=== PATIENT | female | born 1970 | race Caucasian/White ===

== ENCOUNTER 2016-10-24 20:34 | Emergency (ER) | payer OTHER ==
[~2016-10-24] VITALS: Ht 160 cm; Wt 65.9 kg
[~2016-10-24 20:34] MED LIST: ARIP1TAB46 PO; BUPR-197 PO
[2016-10-24 21:08] VITALS: BP 143/65; PULSE 76; RESP 18; TEMP 97.7; O2SAT 97
[2016-10-24] MEDS ORDERED: BUPR100T4 PO (21:14)
[2016-10-24] MEDS ORDERED: MULTIVITAMIN (21:14)
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
[2016-10-24 22:03] LABS: AMPHETAMINE, URINE NEG (NEG); BARBITURATES, URINE NEG (NEG); COCAINE, URINE NEG (NEG)
[2016-10-24 22:10] LABS: AUTOMATED NEUTROPHIL # 4.1 TH/MM3 (1.8-7.7); BASOPHIL # 0.1 TH/MM3 (0-0.2); EOSINOPHIL # 0.1 TH/MM3 (0-0.4); EOSINOPHIL % 1.9 % (0.0-4.0); HEMATOCRIT 45.9 % (35.0-46.0); HEMO FLAGS DIFF FINAL; LYMPH % 26.8 % (9.0-44.0); LYMPHOCYTE # 1.7 TH/MM3 (1.0-4.8); MEAN CELL VOLUME 91.1 FL (80.0-100.0); MEAN CORPUSCULAR HGB CONC 34.1 % (32.0-36.0); MONO % 7.3 % (0.0-8.0); PLATELET COUNT 251 TH/MM3 (150-450); RED BLOOD COUNT 5.04 MIL/MM3 (4.00-5.30); RED CELL DISTRIBUTION WIDTH 12.5 % (11.6-17.2); WHITE BLOOD COUNT 6.4 TH/MM3 (4.0-11.0)
[2016-10-24 22:21] LABS: ALT (GPT) 141 U/L (10-53); ANION GAP 6 MEQ/L (5-15); AST (GOT) 87 U/L (15-37); BICARBONATE 28.1 MEQ/L (21.0-32.0); BLOOD UREA NITROGEN 14 MG/DL (7-18); CHLORIDE 105 MEQ/L (98-107); GLOMERULAR FILTRATION RATE 79 ML/MIN (>89); SODIUM (NA) 139 MEQ/L (136-145)
[2016-10-24 22:23] LABS: ALKALINE PHOSPHATASE 67 U/L (45-117); TOTAL BILIRUBIN ADULT 0.3 MG/DL (0.2-1.0)
[2016-10-25] MEDS ORDERED: MULTTAB67 PO (15:56)
== END 2016-10-24 23:18 | disposition home or self-care (01) ==
LOC: NEDAMB 20:34 → NEPA 23:18
DX: Z04.6 Encounter for general psychiatric examination, requested by authority (principal); F17.210 Nicotine dependence, cigarettes, uncomplicated; S40.022A Contusion of left upper arm, initial encounter; S40.021A Contusion of right upper arm, initial encounter; F31.9 Bipolar disorder, unspecified; Z91.14 Patient's other noncompliance with medication regimen
CPT/HCPCS: 80053; 80307; 80320; 85025; 99283

== ENCOUNTER 2016-11-30 13:29 | Inpatient (IN) | payer OTHER ==
[~2016-11-30] VITALS: Ht 160 cm; Wt 70.1 kg
[~2016-11-30 13:29] MED LIST changes: -ARIP1TAB46 PO; -BUPR-197 PO; +BUPR100T4 PO; +MULTTAB67 PO
[2016-11-30 14:06] VITALS: BP 127/64; PULSE 74; RESP 16; TEMP 99; O2SAT 96
--- NOTE | 2016-11-30 14:31 | PD ---
HPI Chief Complaint: Psychiatric Symptoms Time Seen by Provider: 14:27 Travel History International Travel<30 days: No Contact w/Intl Traveler<30days: No Traveled to known affect area: No History of Present Illness HPI 46-year-old female that presents to the ED for evaluation of psychiatric illness. Patient is an expert today secondary to noncompliance. Patient has a history of schizoaffective disorder, bipolar, depression. Patient apparently has been noncompliant with her medications and has been acting bizarre. Per expert that patient was apparently making nonsensical statements and night about her kids who were girls been boys and cursing and making nonsense. To me she voices no complaints. She denies any homicidal or suicidal ideation. She denies any chest pain or shortness of breath. The only thing that she tells me that she feels slightly weak but she thinks is because she has not been eating. She states that her symptoms are moderate. She denies any other complaint. No hallucinations. No drug abuse. She's been here before for similar. PFSH Past Medical History Blood Disorders: No Anxiety: Yes Depression: Yes Cancer: No Cardiovascular Problems: No Chemotherapy: No Diminished Hearing: No Endocrine: No Genitourinary: No Immune Disorder: No Musculoskeletal: No Neurologic: No Psychiatric: Yes Reproductive: No Respiratory: No Radiation Therapy: No Tetanus Vaccination: < 5 Years ?: Not Past Surgical History AICD: No Arteriovenous Shunt: No Section: Yes (X 2) Insulin Pump: No Joint Replacement: No Pacemaker: No Other Surgery: No Social History Alcohol Use: No Tobacco Use: Yes Substance Use: No Allergies-Medications (Allergen,Severity, Reaction): Coded Allergies: No Known Allergies (Verified , 11/30/16) Reported Meds & Prescriptions Reported Meds & Active Scripts Active Reported Multiple Vitamin 1 Tab 1 Tab PO DIRECTED Review of Systems General / Constitutional: No: Fever, Chills, Weight Gain, Weight Loss, Other Eyes: No: Diploplia, Blurred Vision, Photophobia, Drainage, Redness, Foreign Body Sensation, Pain, Tearing, Blind Spots, Visual changes, Blindness, Other HENT: No: Headaches, Vertigo, Lightheadedness, Sore Throat, Rhinitis, Rhinorrhea, Congestion, Nosebleed, Neck Stiffness, Neck Pain, Masses, Gingival Bleeding, Dental Difficulties, Ear Discharge, Earache, Other Cardiovascular: No: Chest Pain or Discomfort, Palpitations, Irregular Rhythm, Tachycardia, Diaphoresis, Syncope, Dyspnea on exertion, Varicosities, Edema, Cyanosis, Varicosities, Phlebitis, Claudication, Other Respiratory: No: Cough, Shortness of Breath, Wheezing, Sneezing, Orthopnea, Hemoptysis, Stridor, Night Sweats, Pleuritic Pain, Other Gastrointestinal: No: Nausea, Vomiting, Diarrhea, Abdominal Pain, Hematemesis, Hematochezia, Constipation, Changes in Bowel Habits, Indigestion, Dysphagia, Loss of Appetite, Other Genitourinary: No: Urgency, Frequency, Dysuria, Nocturia, Hematuria, Decreased Urinary Output, Oliguria, Hesitancy, Dribbling, Incontinence, Pelvic Pain, Flank Pain, Dyspareunia, Discharge, Dysmenorrhea, Menorrhagia, Metorrhagia, Vaginal Bleeding, Other Musculoskeletal: No: Myalgias, Arthralgias, Limited ROM, Weakness, Cramping, Edema, Pain, Atrophy, Other Skin: No Rash, No Itching, No Dryness, No Lumps, No Hives, No Change in Pigmentation, No Change in nails, No Alopecia, No Lesions, No Breast Lumps, No Breast Tenderness, No Breast Swelling, No Other Neurologic: Positive: Weakness, No: Dizziness, Syncope, Focal Abnormalities, Coordination Problem, Tremor, Ataxia, Headache, Change in Mentation, Slurred Speech, Paresthesia, Incontinence, Seizures, Sensory Disturbance, Other Psychiatric: Positive: Depression, Disorder of Thought, Mood Disorder, No: Anxiety, Suicidal Ideations, Substance Abuse, Homicidal Ideation, Other Endocrine: No: Heat Intolerance, Cold Intolerance, Polyuria, Polydipsia, Other Hematologic/Lymphatic: No: Easy Bruising, Lymph Node Enlargement, Other Physical Exam Narrative GENERAL: SKIN: Warm and dry. HEAD: Atraumatic. Normocephalic. EYES: Pupils equal and round. No scleral icterus. No injection or drainage. ENT: No nasal bleeding or discharge. Mucous membranes pink and moist. Tongue is midline. No uvula deviation. NECK: Trachea midline. No JVD. CARDIOVASCULAR: Regular rate and rhythm. No murmurs, S3, S4. RESPIRATORY: No accessory muscle use. Clear to auscultation. Breath sounds equal bilaterally. GASTROINTESTINAL: Abdomen soft, non-tender, nondistended. Hepatic and splenic margins not palpable. MUSCULOSKELETAL: Extremities without clubbing, cyanosis, or edema. No obvious deformities. Full range of motion of the upper and lower extremities bilaterally. 2+ pulses bilaterally. NEUROLOGICAL: Awake and alert. No obvious cranial nerve deficits. Motor grossly within normal limits. Five out of 5 muscle strength in the arms and legs. Normal speech. PSYCHIATRIC: Appropriate mood and affect; insight and judgment normal. Data Data Last Documented VS Vital Signs Date Time Temp Pulse Resp B/P Pulse Ox O2 Delivery O2 Flow Rate FiO2 11/30/16 14:06 99.0 74 16 127/64 96 Orders Complete Blood Count With Diff (11/30/16 13:42) Comprehensive Metabolic Panel (11/30/16 13:42) Urinalysis - C+S If Indicated (11/30/16 13:42) Psych Screen (11/30/16 13:42) Drug Screen, Random Urine (11/30/16 13:42) Alcohol (Ethanol) (11/30/16 13:42) ^ Sitter (11/30/16 13:44) Urine Culture (11/30/16 14:19) Sulfamet-Trimeth Ds 800-160 Mg (Bactrim (11/30/16 14:45) Labs Laboratory Tests Test 11/30/16 11/30/16 14:15 14:19 White Blood Count 5.8 TH/MM3 Red Blood Count 4.95 MIL/MM3 Hemoglobin 15.4 GM/DL Hematocrit 44.8 % Mean Corpuscular Volume 90.6 FL Mean Corpuscular Hemoglobin 31.1 PG Mean Corpuscular Hemoglobin 34.4 % Concent Red Cell Distribution Width 12.7 % Platelet Count 249 TH/MM3 Mean Platelet Volume 7.7 FL Neutrophils (%) (Auto) 59.5 % Lymphocytes (%) (Auto) 29.5 % Monocytes (%) (Auto) 8.3 % Eosinophils (%) (Auto) 1.9 % Basophils (%) (Auto) 0.8 % Neutrophils # (Auto) 3.4 TH/MM3 Lymphocytes # (Auto) 1.7 TH/MM3 Monocytes # (Auto) 0.5 TH/MM3 Eosinophils # (Auto) 0.1 TH/MM3 Basophils # (Auto) 0.0 TH/MM3 CBC Comment DIFF FINAL Differential Comment Urine Color DARK-YELLOW Urine Turbidity HAZY Urine pH 6.0 Urine Specific [place] 1.023 Urine Protein 30 mg/dL Urine Glucose (UA) NEG mg/dL Urine Ketones NEG mg/dL Urine Occult Blood NEG Urine Nitrite NEG Urine Bilirubin NEG Urine Urobilinogen 2.0 MG/DL Urine Leukocyte Esterase NEG Urine RBC 3 /hpf Urine WBC 8 /hpf Urine Squamous Epithelial 17 /hpf Cells Urine Bacteria MOD /hpf Urine Mucus MANY /lpf Microscopic Urinalysis Comment CULTURE INDICATED MDM Medical Decision Making Medical Screen Exam Complete: Yes Emergency Medical Condition: Yes Medical Record Reviewed: Yes Interpretation(s) CBC & BMP Diagram 11/30/16 14:15 UA shows possible UTI Differential Diagnosis Depression versus suicidal ideation versus anxiety versus adjustment disorder versus mood disorder versus bipolar disorder versus schizophrenia versus paranoid disorder versus psychosis versus substance abuse versus alcohol abuse versus alcohol induced psychosis versus homicidality addition versus cutting versus personality disorder Narrative Course 46-year-old female that presents to the ED for evaluation of psych. Patient was properly examined and was found to have signs and symptoms consistent with psychiatric illness. No sign of acute medical distress. Patient was medically cleared. Okay to be seen by psych. Labs were drawn. Has UTI, will treat with bactrim. Mental health screening was discussed with the patient. Diagnosis Primary Impression: Bipolar 1 disorder Additional Impressions: Schizophrenia Qualified Code: F20.9 - Schizophrenia, unspecified type UTI (urinary tract infection) Qualified Code: N30.00 - Acute cystitis without hematuria Scripts Sulfamethoxazole-Trimethoprim (Bactrim DS)800-160 Mg Tab1 Tab PO BID 7 Days Prov:Atilio Rodríguez MD 11/30/16 Sameer Krause Nov 30, 2016 14:31
[2016-11-30 14:32] LABS: AUTOMATED NEUTROPHIL # 3.4 TH/MM3 (1.8-7.7); BASOPHIL % 0.8 % (0.0-2.0); EOSINOPHIL # 0.1 TH/MM3 (0-0.4); EOSINOPHIL % 1.9 % (0.0-4.0); HEMATOCRIT 44.8 % (35.0-46.0); HEMO FLAGS DIFF FINAL; LYMPH % 29.5 % (9.0-44.0); LYMPHOCYTE # 1.7 TH/MM3 (1.0-4.8); MEAN CELL VOLUME 90.6 FL (80.0-100.0); MEAN CORPUSCULAR HEMOGLOBIN 31.1 PG (27.0-34.0); MEAN CORPUSCULAR HGB CONC 34.4 % (32.0-36.0); MONO % 8.3 % (0.0-8.0); NEUT % 59.5 % (16.0-70.0); PLATELET COUNT 249 TH/MM3 (150-450); RED BLOOD COUNT 4.95 MIL/MM3 (4.00-5.30); RED CELL DISTRIBUTION WIDTH 12.7 % (11.6-17.2); WHITE BLOOD COUNT 5.8 TH/MM3 (4.0-11.0)
[2016-11-30 14:33] LABS: BACTERIA, URINE MOD /hpf; BLOOD, URINE NEG (NEG); COMMENT (UR) CULTURE INDICATED; CULTURE IF INDICATED CULTURE INDICATED; GLUCOSE,URINE NEG (NEG); KETONE, URINE NEG (NEG); MUCUS URINE MANY /lpf (OCC); NITRITE,URINE NEG (NEG); SQUAMOUS EPITHELIAL CELL URINE 17 /hpf (0-5); URINE COLOR DARK-YELLOW (YELLW/STRAW)
[2016-11-30 14:36] LABS: AMPHETAMINE, URINE NEG (NEG); BARBITURATES, URINE NEG (NEG); COCAINE, URINE NEG (NEG)
[2016-11-30] MEDS ORDERED: BACT800T5 PO (14:41)
[2016-11-30] MEDS ORDERED: SULFAMETHOXAZOLE-TRIMETHOPRIM DS 800-160 MG TAB PO ONE (14:45)
[2016-11-30 14:46] LABS: ALKALINE PHOSPHATASE 68 U/L (45-117); ALT (GPT) 146 U/L (10-53); TOTAL BILIRUBIN ADULT 0.6 MG/DL (0.2-1.0)
[2016-11-30 14:57] LABS: ANION GAP 7 MEQ/L (5-15); AST (GOT) 98 U/L (15-37); BICARBONATE 29.3 MEQ/L (21.0-32.0); BLOOD UREA NITROGEN 13 MG/DL (7-18); CHLORIDE 105 MEQ/L (98-107); GLOMERULAR FILTRATION RATE 76 ML/MIN (>89); POTASSIUM 4.2 MEQ/L (3.5-5.1); SODIUM (NA) 141 MEQ/L (136-145)
[2016-11-30 19:05] VITALS: BP 157/78; PULSE 86; RESP 18; TEMP 98.7; O2SAT 98
[2016-11-30] MEDS ORDERED: LORazepam 1 MG TAB PO ONE (19:30)
[2016-11-30 22:12] VITALS: BP 120/72; PULSE 92; RESP 18; TEMP 97.6; O2SAT 96
[2016-11-30] MEDS ORDERED: traZODone HCL 50 MG TAB PO PRN (22:15)
[2016-11-30] MEDS ORDERED: LORazepam 1 MG TAB PO PRN (22:15)
[2016-11-30] MEDS ORDERED: MAGNESIUM HYDROXIDE SUSP 30 ML CUP PO PRN (22:15)
[2016-11-30] MEDS ORDERED: hydrOXYzine HCL 50 MG TAB PO PRN (22:15)
[2016-11-30] MEDS ORDERED: BENZTROPINE MESYLATE 2 MG/2 ML VIAL IM PRN (22:15)
[2016-11-30] MEDS ORDERED: ALUMINUM/MAGNESIUM/SIMETH 30 ML CUP PO PRN (22:15)
[2016-11-30] MEDS ORDERED: BENZTROPINE MESYLATE 1 MG TAB PO PRN (22:15)
[2016-11-30] MEDS ORDERED: LORazepam 2 MG/ML VIAL IM PRN (22:15)
[2016-12-01 00:08] VITALS: BP 128/63; PULSE 90; RESP 18; TEMP 97.1; O2SAT 97
[2016-12-01 06:05] VITALS: BP 110/70; PULSE 83; RESP 18; TEMP 97.4; O2SAT 96
[2016-12-01 07:49] LABS: ANION GAP 10 MEQ/L (5-15); BICARBONATE 26.1 MEQ/L (21.0-32.0); BLOOD UREA NITROGEN 9 MG/DL (7-18); CHLORIDE 103 MEQ/L (98-107); GLOMERULAR FILTRATION RATE 91 ML/MIN (>89); POTASSIUM 3.9 MEQ/L (3.5-5.1); SODIUM (NA) 139 MEQ/L (136-145)
[2016-12-01 07:52] LABS: HDL CHOLESTEROL 42.9 MG/DL (40.0-60.0); LDL CHOLESTEROL 70 MG/DL (0-99)
[2016-12-01] MEDS: QUEtiapine FUMARATE 25 MG TAB PO SCH ×2 (08:34→21:00)
[2016-12-01] MEDS: NICOTINE 21 MG/24 HR PATCH T-DERMAL SCH (08:34)
--- NOTE | 2016-12-01 14:37 | HHI.HP ---
Provisional Diagnosis Admission Date Nov 30, 2016 at 22:06 [place] I. Schizoaffective disorder, bipolar type [place] II. Rule out personality disorder [place] III. She denies Certification of Person's Competence To Provide Express and Informed Consent I have personally examined Dora Beckman , a person being served at [facility] on, Dec 01, 2016 14:27. Express and informed consent means consent voluntarily given in writing, by a competent person, after sufficient explanation and disclosure of the subject matter involved to enable the person to make a knowing and willful decision without any element of force, fraud, deceit, duress, or other form of constraint or coercion. This person is 18 years of age or older, is not now known to be incompetent to consent to treatment with a guardian advocate, and does not have a health care surrogate or proxy currently making medical treatment decisions. I have found this person to be one of the following: [] Competent to provide express and informed consent, as defined above, for voluntary admission to this facility and is competent to provide express and informed consent for treatment. He/she has the consistent capacity to make well reasoned, willful, and knowing decisions concerning his or her medical or mental health treatment. The person fully and consistently understands the purpose of the admission for examination/placement and is fully capable of personally exercising all rights [place] [X] Incompetent to provide express and informed consent to voluntary admission, and this is incompetent to provide express and informed consent to treatment. The person must be transferred to involuntary status and a petition for a guardian advocate filed with the Circuit Court. [] Refusing to provide express and informed consent to voluntary admission but is competent to provide express and informed consent for treatment. The person must be discharged or transferred to involuntary status. Form shall be completed within 24 hours of a person's arrival at the receiving facility and filed in the clinical record of each person: 1. Admitted on a voluntary basis 2. Permitted to provide express and informed consent to his/her own treatment 3. Allowed to transfer from involuntary to voluntary status 4. Prior to permitting a person to consent to his or her own treatment after having been previously found incompetent to consent to treatment. History of Present Illness Capacity: Lacks Capacity HPI The patient is a 46-year-old woman, domicile with her mother, unemployed, with psychiatric history of schizoaffective disorder, numerous hospitalizations, previous suicidal attempts, she reports not to be taking any medication at this moment, who that presented to the ED for evaluation of psychiatric illness in the context of noncompliance with medication. according to ER note "Patient apparently has been noncompliant with her medications and has been acting bizarre. Per expert that patient was apparently making nonsensical statements and night about her kids who were girls been boys and cursing and making nonsense. On psychiatric evaluation today patient is found in her bed, very upset, irritable, demanding to be discharged, refusing to talk "I am not going to talk unless he was discharge me". Patient states that the reason she is here is because her mother is a liar. She denies depression, she denies anxiety, she denies perceptual disturbances, she denies suicidal or homicidal ideation. She denies visual and auditory hallucinations. Nurse in charge stated the patient has been disruptive, very irritable, inappropriate and so far refusing to give any information. Review of Systems Constitutional: DENIES: Diaphoretic episodes, Fatigue, Fever, Weight gain, Weight loss, Chills, Dizziness, Change in appetite, Night Sweats Ears, nose, mouth, throat: DENIES: Tinnitus, Hearing loss, Vertigo, Nasal discharge, Oral lesions, Throat pain, Hoarseness, Ear Pain, Running Nose, Epistaxis, Sinus Pain, Toothache, Odynophagia Respiratory: DENIES: Apneas, Cough, Snoring, Wheezing, Hemoptysis, Sputum production, Shortness of breath Cardiovascular: DENIES: Chest pain, Palpitations, Syncope, Dyspnea on Exertion , PND, Lower Extremity Edema, Orthopnea, Claudication Genitourinary: DENIES: Abnormal vaginal bleeding, Dysmenorrhea, Dyspareunia, Sexual dysfunction, Urinary frequency, Urinary incontinence, Urgency, Hematuria , Dysuria, Nocturia, Vaginal discharge Musculoskeletal: DENIES: Joint pain, Muscle aches, Stiffness, Joint Swelling, Back pain, Neck pain Integumentary: DENIES: Abnormal pigmentation, Pruritus, Rash, Nail changes, Breast masses, Breast skin changes, Nipple discharge Hematologic/lymphatic: DENIES: Bruising, Lymphadenopathy Immunologic/allergic: DENIES: Eczema, Urticaria Neurologic: DENIES: Abnormal gait, Headache, Localized weakness, Paresthesias, Seizures, Speech Problems, Tremor, Poor Balance Psychiatric: DENIES: Anxiety, Confusion, Mood changes, Depression, Hallucinations, Agitation, Suicidal Ideation, Homicidal Ideation, Delusions Past Psych History Violence risk - others (6 mos) Increased Substance Abuse History Drugs/Alcohol past 12 months She denies Past Family Social History Coded Allergies: No Known Allergies (Verified , 11/30/16) Active Scripts Sulfamethoxazole-Trimethoprim (Bactrim DS)800-160 Mg Tab1 Tab PO BID 7 Days Prov:Atilio Rodríguez MD 11/30/16 Reported Medications Multiple Vitamin 1 Tab1 Tab PO DIRECTED Ref 0 10/25/16 Discontinued Reported Medications Bupropion HCl 100 Mg [id number] Mg PO HS Ref 0 10/24/16 Current Medications Medications (Trade) Dose Ordered Sig/Treva Route Start Time Stop Time Status Last Admin (Ativan) 1 mg Q6H PRN PO 11/30/16 22:15 (Ativan Inj) 1 mg Q6H PRN IM 11/30/16 22:15 (Atarax) 50 mg Q6H PRN PO 11/30/16 22:15 (Cogentin) 1 mg Q12H PRN PO 11/30/16 22:15 (Cogentin Inj) 1 mg Q12H PRN IM 11/30/16 22:15 (Desyrel) 50 mg HS PRN PO 11/30/16 22:15 (Tylenol) 650 mg Q4H PRN PO 11/30/16 22:15 (Milk Of Magnesia Liq) 30 ml DAILY PRN PO 11/30/16 22:15 (Mag-Al Plus Susp Liq) 30 ml Q6H PRN PO 11/30/16 22:15 (SEROquel) 50 mg BID PO 12/01/16 09:00 (Habitrol 21 Mg Patch.24 Hr) 1 patch DAILY T-DERMAL 12/01/16 09:00 Miscellaneous Information 1 HS T-DERMAL 12/01/16 21:00 Social History Patient was born and raised in [place], she has been living for her for 20 years, she is unemployed, she lives with his mother, her highest level of education is high school. Physical Exam Vital Signs Vital Signs Date Time Temp Pulse Resp B/P Pulse Ox O2 Delivery O2 Flow Rate FiO2 12/01/16 06:05 97.4 83 18 110/70 96 11/30/16 22:12 Room Air Mental Status Examination Appearance woman, laying her bed, [facility], good hygiene, poorly cooperative, irritable Speech: Hesitant Orientation: x3 Memory: Unremarkable Thought Process: Linear Thought Content: Unremarkable Attention and Concentration: Good Suicidal Ideation: No Previous Suicide Attempts: No Homicidal Ideation: No Previous Homicide Attempts: No Judgement: Poor Affect: Irritable Mood: Angry Motor Activity: Normal gait Assessment & Plan Problem List: (1) Schizoaffective disorder Assessment & Plan: On psychiatric evaluation patient is poorly cooperative, irritable, demanding to be discharged, refusing to provide information for the psychiatric assessment. In the unit she has been isolated, verbally hostile with the nurse no give much information, but she has been taking her medication. Collateral information from her mother could not be obtained at this time. Patient will continue psychiatric hospitalization for safety and stabilization. SW to get collateral information from mother and complete psychosocial and psychiatric assessment. Continue Seroquel 50 twice a day. ICD Code: F25.9 Assessment & Plan Estimated LOS: Nelson Meraz MD Dec 01, 2016 14:37
[2016-12-01 19:41] VITALS: BP 106/60; PULSE 64; RESP 18; TEMP 98.2; O2SAT 97
[2016-12-01] MEDS: REMOVE OLD NICOTINE PATCH T-DERMAL SCH (21:00)
[2016-12-02 05:33] VITALS: BP 120/58; PULSE 68; RESP 18; TEMP 98; O2SAT 97
[2016-12-02] MEDS: NICOTINE 21 MG/24 HR PATCH T-DERMAL SCH (08:59)
[2016-12-02] MEDS: QUEtiapine FUMARATE 25 MG TAB PO SCH ×2 (08:59→20:43)
[2016-12-02 10:02] LABS: HEMOGLOBIN A1b 0.8 %; HEMOGLOBIN Ao 85.4 %; HEMOGLOBIN F 1.4 %; HEMOGLOBIN LA1C 1.8 %; HEMOGLOBIN P3 3.4 %
[2016-12-02 16:55] VITALS: BP 124/59; PULSE 58; RESP 18; TEMP 97.8; O2SAT 100
--- NOTE | 2016-12-02 17:10 | HHI.PYPN ---
Subjective Remarks Patient was seen and case discussed with nursing. This is a request for second opinion for Dr. Meraz. Patient is very irritable and perseverative and we could not get off the topic of her demand to be discharged. She has poor insight into her admission, her history, her noncompliance and her bizarre statements. Patient denies psychosis today but is an unreliable historian. Denies suicidal ideations thought intent or plan Objective Alert: Yes [place]: Person Mood: Oppositional Affect: Blunted Memory Intact: Immediate Hallucinations: Auditory (denies), Other Delusions: No Delusion Type: Paranoid Suicidal: Ideation Homicidal: Ideation Insight/Judgement Poor Labs Date/Time Procedure Status Source Growth 11/30/16 14:19 Urine Culture - Final Complete Urine Clean Catch 50-100,000 CFU/ML MIXED GRAM POSITIVE... Vitals/IOs Vital Signs Date Time Temp Pulse Resp B/P Pulse Ox O2 Delivery O2 Flow Rate FiO2 12/02/16 16:55 97.8 58 18 124/59 100 11/30/16 22:12 Room Air Assessment & Plan Problem List: (1) Schizoaffective disorder ICD Code: F25.9 Assessment & Plan I agree with first opinion to continue petition. Criteria include disorganized behavior, thought process and medication noncompliance Justification for Cont. Inpt. Patient will decompensate in a less restrictive setting Von Dia DO Dec 02, 2016 17:10
[2016-12-02] MEDS: REMOVE OLD NICOTINE PATCH T-DERMAL SCH (21:00)
[2016-12-03 05:50] VITALS: BP 106/69; PULSE 70; RESP 17; TEMP 97.8; O2SAT 98
[2016-12-03] MEDS: NICOTINE 21 MG/24 HR PATCH T-DERMAL SCH (09:00)
[2016-12-03] MEDS: QUEtiapine FUMARATE 25 MG TAB PO SCH (09:00)
--- NOTE | 2016-12-03 09:47 | HHI.PYPN ---
Subjective Remarks Patient seen and examined with nursing staff. Chart reviewed. Case discussed with nurse who reports patient remains quite paranoid. On my examination today , the patient insists on being interviewed in the hallway. She is quite watchful and guarded. She is malodorous and disheveled. Paranoia is present. She blandly denies the allegations in the ex parte order initiated by her mother and says "I don't know what she does." Her insight into her mental illness is nil and she says that the only medication she might take is Wellbutrin for depression. Reviewing the EMR, I note that she was previously treated with Risperdal and Risperdal Consta during her [address] Vidal. She is presently refusing the Seroquel ordered by Dr. Meraz. I spoke with patient's mother and presumptive HCS, Ms. Galarza. She notes that the patient had done very well indeed on Risperdal PO and Consta before and tolerated these agents without issue. She had only stopped them secondary to weight gain. She became non-adherent around last December and has been decompensating ever since. Mother notes that she paces the house at night, sleeping poorly, refusing all meds. She has apparently been digging holes in the lawn looking for oil. She has reportedly conceived the notion that her mother needs constant care and even quit her job because of this, although mother reassures me that she is quite independent. Mother notes that the patient remains mildly symptomatic from psychosis even when she is completely at her baseline. After a discussion of the risks, benefits and alternatives, mother agrees to a trial of Invega Sustenna for patient. Review of Systems ROS Limitations: Uncooperative, Psychotic, Poor Historian Other No physical complaints today Objective Alert: Yes [place]: Person Mood: Anxious, Oppositional Affect: Flat Memory Intact: Comment (not formally assessed) Hallucinations: Auditory (appears internally preoccupied) Delusions: Yes Delusion Type: Paranoid Suicidal: Ideation (no SI but patient is unreliable to contract for safety in her present state) Homicidal: Ideation (no HI but patient is unreliable to contract for safety in her present state) Insight/Judgement Poor Remarks Thought process fairly linear. Speech quite terse. No motoric abnormalities noted. Steady gait and station. Grooming and hygiene are poor. Labs Date/Time Procedure Status Source Growth 11/30/16 14:19 Urine Culture - Final Complete Urine Clean Catch 50-100,000 CFU/ML MIXED GRAM POSITIVE... Labs reviewed. I note that urine culture reveals mixed devin, likely contaminants. Vitals/IOs Vital Signs Date Time Temp Pulse Resp B/P Pulse Ox O2 Delivery O2 Flow Rate FiO2 12/03/16 05:50 97.8 70 17 106/69 98 11/30/16 22:12 Room Air Assessment & Plan Problem List: (1) Schizoaffective disorder ICD Code: F25.9 Assessment & Plan Patient presents today in a severely decompensated psychotic state with prominent paranoia. Collateral from patient's mother indicates that patient has been medication nonadherent for about a year. She is presently refusing oral psychotropics. Given patient's prior documented response and tolerance to the Risperdal and Risperdal Consta, I think it is reasonable to initiate Invega Sustenna at this time as this agent does not require temporary oral supplementation and may be started if Risperdal is well tolerated. I will obtain a beta hCG to insure that this is negative, and once this has been done administer her Invega Sustenna 234 mg IM with plan for a booster dose in 4-7 days. We could consider additional psychopharmacology based on her response to this agent. We will continue to monitor on the inpatient psychiatric unit. I will not continue the Bactrim ordered in the ED as patient's urine culture reveals only mixed devin. Continue other medications and care as ordered. Given patient's presentation today, it is my opinion that in addition to being unable to consent for admission, the patient is presently incapacitated to consent for medications or other treatment, and therefore I will request a healthcare surrogate and guardian advocate. I have notified the legal services manager of this change. Justification for Cont. Inpt. Impairment in reality construction. Impairment in self-care. Impairment in social function. Medication changes. High risk for decompensation in a lower level of care pending psychiatric stabilization. Discharge Planning Pending psychiatric stabilization Request HC Surrog/Guard Advoc?: Yes Problem Qualifiers (1) Schizoaffective disorder: Qualified Code: F25.8 - Other schizoaffective disorders Festus Meade MD Dec 03, 2016 09:47
[2016-12-03] MEDS ORDERED: PALIPERIDONE PALMITATE 234 MG/1.5 ML SYRINGE IM ONE (14:00)
[2016-12-03 15:27] VITALS: BP 103/56; PULSE 59; RESP 18; TEMP 98.3; O2SAT 98
[2016-12-03] MEDS: REMOVE OLD NICOTINE PATCH T-DERMAL SCH (21:00)
[2016-12-04 05:40] VITALS: BP 109/60; PULSE 56; RESP 18; TEMP 97.3; O2SAT 97
[2016-12-04] MEDS: NICOTINE 21 MG/24 HR PATCH T-DERMAL SCH (08:55)
--- NOTE | 2016-12-04 09:28 | HHI.PYPN ---
Subjective Remarks Patient seen and examined with counselor. Chart reviewed. Case discussed with nursing staff, counselor and recreation therapist in treatment team. On my examination today, the patient remains guarded and paranoid. She is largely volitionally mute an uncooperative with interview. Limited interview for this reason. She complains of some injection site discomfort but otherwise does not report any side effects from the Sustenna. Review of Systems ROS Limitations: Psychotic, Poor Historian Other Except as above, no physical complaints. Objective Alert: Yes [place]: Person Mood: Angry, Oppositional Affect: Flat Memory Intact: Comment (Not formally assessed) Hallucinations: Other (No AVH) Delusions: Yes Delusion Type: Paranoid Suicidal: Ideation (No SI voiced) Homicidal: Ideation (No HI voiced) Insight/Judgement Poor Remarks No hand tremor, no dystonia, no dyskinesia. Largely volitionally mute. Grooming and hygiene are fair. Labs Test 12/03/16 15:04 Beta HCG, Qualitative LESS THAN 1 MIU/ML Date/Time Procedure Status Source Growth 11/30/16 14:19 Urine Culture - Final Complete Urine Clean Catch 50-100,000 CFU/ML MIXED GRAM POSITIVE... Labs reviewed. Vitals/IOs Vital Signs Date Time Temp Pulse Resp B/P Pulse Ox O2 Delivery O2 Flow Rate FiO2 12/04/16 05:40 97.3 56 18 109/60 97 11/30/16 22:12 Room Air Assessment & Plan Problem List: (1) Schizoaffective disorder ICD Code: F25.9 Assessment & Plan Patient received initial dose of Invega Sustenna yesterday. Plan for booster dose later this week. Symptomatic treatment of reported mild injection site discomfort. Continue to monitor on the inpatient psychiatric unit. Continue other medications and care as ordered. Justification for Cont. Inpt. Impairment in reality construction. Impairment in social function. Medication changes. High risk for decompensation. Discharge Planning Pending psychiatric stabilization. Request HC Surrog/Guard Advoc?: Yes Problem Qualifiers (1) Schizoaffective disorder: Qualified Code: F25.8 - Other schizoaffective disorders Festus Meade MD Dec 04, 2016 09:28
[2016-12-04 18:11] VITALS: BP 116/53; PULSE 70; RESP 18; TEMP 98.1
[2016-12-05 05:20] VITALS: BP 112/57; PULSE 77; RESP 18; TEMP 98.2; O2SAT 98
--- NOTE | 2016-12-05 08:49 | HHI.PYPN ---
Subjective Remarks Patient seen and examined with nurse, Alisia. Chart reviewed. Case discussed with nursing staff who reports patient continues to behave in an odd fashion. She reportedly told the nurse that she is only in the hospital because "her mother is a bitch and her is training her children to be jaramillo." On my examination today, patient is somewhat less guarded versus previous days. She reports that her sleep and appetite are fair. She remains opposed to psychotropic medication treatment other than Wellbutrin. She denies side effects from Invega Sustenna, and the injection site discomfort is improving. Review of Systems ROS Limitations: Poor Historian Other No physical complaints today. Objective Alert: Yes [place]: Person, Place Mood: Other (Calmer, less oppositional) Affect: Blunted Memory Intact: Comment (Not formally assessed) Hallucinations: Other (None) Delusions: Yes Delusion Type: Paranoid (perhaps lessening somewhat) Suicidal: Ideation (No SI voiced) Homicidal: Ideation (No HI voiced) Insight/Judgement Poor Remarks No abnormal motor movements noted. Injection site examined with RN: No erythema , no induration, no purulence or drainage. Labs Date/Time Procedure Status Source Growth 11/30/16 14:19 Urine Culture - Final Complete Urine Clean Catch 50-100,000 CFU/ML MIXED GRAM POSITIVE... Labs reviewed. Vitals/IOs Vital Signs Date Time Temp Pulse Resp B/P Pulse Ox O2 Delivery O2 Flow Rate FiO2 12/05/16 05:20 98.2 77 18 112/57 98 Assessment & Plan Problem List: (1) Schizoaffective disorder ICD Code: F25.9 Assessment & Plan Patient possibly experiencing some early therapeutic benefit from initiation of Invega Sustenna. The earliest we could administer the needed booster dose of Invega Sustenna would be this Saturday, and I think given the patient's general reticence to take medications that should be done on the inpatient psychiatric unit. Continue to monitor on the inpatient unit. Continue other medications and care as ordered. Justification for Cont. Inpt. High risk for decompensation in a less restrictive environment. Discharge Planning Pending outcome of [place] [facility] tomorrow. Request HC Surrog/Guard Advoc?: Yes Problem Qualifiers (1) Schizoaffective disorder: Qualified Code: F25.8 - Other schizoaffective disorders Festus Meade MD Dec 05, 2016 08:49
[2016-12-05 19:25] VITALS: BP 104/54; PULSE 70; RESP 18; TEMP 98.1
[2016-12-06 05:56] VITALS: BP 97/71; PULSE 95; RESP 16; TEMP 98
[2016-12-06] MEDS: ACETAMINOPHEN 325 MG TAB PO PRN ×2 (06:25→17:20)
[2016-12-06 08:36] VITALS: BP 104/51; PULSE 71; RESP 16; TEMP 98; O2SAT 98
--- NOTE | 2016-12-06 12:42 | HHI.PYPN ---
Subjective Remarks Patient seen and case discussed with nursing staff. Chart reviewed. I note that patient had to be removed from visitation yesterday secondary to agitation. For me today, patient is guarded and somewhat querulous. Patient's case was presented to the [place] court and the patient was retained on the inpatient psychiatric unit by the court. Patient's mother was present at court and said that the patient became acutely agitated during visitation and called patient's daughter lesbian. Patient complains of some nausea but otherwise has no physical complaints or reported side effects from medications. Review of Systems ROS Limitations: Poor Historian Other Complains of some nausea. No other physical complaints otherwise. Objective Alert: Yes [place]: Person, Place Mood: Oppositional Affect: Blunted Memory Intact: Comment (Not formally assessed) Hallucinations: Other (None) Delusions: Yes Delusion Type: Paranoid Suicidal: Ideation (no suicidal ideation voiced) Homicidal: Ideation (no homicidal ideation voiced) Insight/Judgement Poor Remarks No abnormal motor movements noted. Patient does not appear to be in any physical distress. Labs Labs reviewed. No new labs. Vitals/IOs Vital Signs Date Time Temp Pulse Resp B/P Pulse Ox O2 Delivery O2 Flow Rate FiO2 12/06/16 08:36 98.0 71 16 104/51 98 Assessment & Plan Problem List: (1) Schizoaffective disorder ICD Code: F25.9 Assessment & Plan Administer booster dose of Invega Sustenna 156 mg IM tomorrow, Saturday. Continue other medications and care as ordered. Justification for Cont. Inpt. High risk for decompensation pending psychiatric stabilization. Discharge Planning Pending psychiatric stabilization. Request HC Surrog/Guard Advoc?: Yes Problem Qualifiers (1) Schizoaffective disorder: Qualified Code: F25.8 - Other schizoaffective disorders Festus Meade MD Dec 06, 2016 12:42
[2016-12-06] MEDS ORDERED: ONDANSETRON ODT 4 MG TAB PO PRN (15:15)
[2016-12-06 19:30] VITALS: BP 106/71; PULSE 72; RESP 18; TEMP 97.4; O2SAT 98
[2016-12-07 05:27] VITALS: BP 111/57; PULSE 67; RESP 18; TEMP 97.4; O2SAT 99
[2016-12-07] MEDS ORDERED: PALIPERIDONE PALMITATE 156 MG/ML SYRINGE IM ONE (09:00)
[2016-12-07] MEDS: ACETAMINOPHEN 325 MG TAB PO PRN ×2 (09:29→17:49)
--- NOTE | 2016-12-07 11:15 | HHI.PYPN ---
Subjective Remarks Patient is scheduled for her second injection of an David instead that today. She is currently refusing to accept this injection despite this physician's discussion of same. She is willing to talk to her father about "all the chemicals" she puts in her body. She is complaining of being lightheaded as well. Review of Systems ROS Limitations: Clinical Condition Except as stated in HPI: all other systems reviewed are Neg Objective Alert: Yes [place]: Person, Place Mood: Anxious, Oppositional Affect: Restricted, Blunted Memory Intact: Immediate, Recent, Remote, Comment (Not formally assessed) Hallucinations: Other (None) Delusions: Yes Delusion Type: Paranoid Suicidal: Ideation (no suicidal ideation voiced) Homicidal: Ideation (no homicidal ideation voiced) Insight/Judgement Impaired due to lack of insight regarding medications and illness. Vitals/IOs Vital Signs Date Time Temp Pulse Resp B/P Pulse Ox O2 Delivery O2 Flow Rate FiO2 12/07/16 05:27 97.4 67 18 111/57 99 Assessment & Plan Problem List: (1) Schizoaffective disorder ICD Code: F25.9 Assessment & Plan Estimated LOS: days this physician is attempting to get the patient take her second injection and explained the nature of therapeutic blood levels to the patient. If she is unwilling to accept her second injection, her blood levels of an Youssef will be low and she may not be qualified for discharge. Justification for Cont. Inpt. Unable to care for self. Request HC Surrog/Guard Advoc?: Yes Problem Qualifiers (1) Schizoaffective disorder: Qualified Code: F25.8 - Other schizoaffective disorders Adonay Aguilar MD Dec 07, 2016 11:15
[2016-12-07 17:00] VITALS: BP 125/60; PULSE 75; RESP 18; TEMP 98.9
[2016-12-08] MEDS: ACETAMINOPHEN 325 MG TAB PO PRN (02:26)
[2016-12-08 05:34] VITALS: BP 112/57; PULSE 60; RESP 18; TEMP 97.5; O2SAT 96
--- NOTE | 2016-12-08 12:23 | HHI.PYPN ---
Subjective Remarks Pt seen and discussed with staff. Pt remains paranoid about medications and treatment. Staff report that pt did yesterday agree to 2nd dose of Invega Sustena, but today she states that the medication is "the cause of all that is wrong with me. That medicine is why I'm here." Insight into illness is very poor. Staff report that pt has been easily agitated and angry most of the day. "How is it legal what you have done?! To give me a medication while my father is waiting to speak?!" No SI/HI. Review of Systems Psychiatric: COMPLAINS OF: Agitation, Delusions Objective Alert: Yes [place]: Person, Place Mood: Angry, Anxious Affect: Restricted, Blunted Memory Intact: Immediate, Recent, Remote, Comment (Not formally assessed) Hallucinations: Other (None) Delusions: Yes Delusion Type: Paranoid Suicidal: Ideation (no suicidal ideation voiced) Homicidal: Ideation (no homicidal ideation voiced) Insight/Judgement poor Vitals/IOs Vital Signs Date Time Temp Pulse Resp B/P Pulse Ox O2 Delivery O2 Flow Rate FiO2 12/08/16 05:34 97.5 60 18 112/57 96 Assessment & Plan Problem List: (1) Schizoaffective disorder ICD Code: F25.9 Assessment & Plan Continue current tx plan. Estimated LOS: days Justification for Cont. Inpt. Pt remains psychotic and easily agitated. Request HC Surrog/Guard Advoc?: Yes Problem Qualifiers (1) Schizoaffective disorder: Qualified Code: F25.8 - Other schizoaffective disorders Nasrin Fields MD Dec 08, 2016 12:23
[2016-12-08 15:15] VITALS: BP 113/69; PULSE 70; RESP 19; TEMP 98.2; O2SAT 99
[2016-12-08 19:50] VITALS: BP 113/69; PULSE 70; RESP 19; TEMP 98.2
[2016-12-09] MEDS: ACETAMINOPHEN 325 MG TAB PO PRN ×2 (01:59→15:45)
[2016-12-09 05:54] VITALS: BP 132/56; PULSE 65; RESP 18; TEMP 97.8; O2SAT 97
[2016-12-09 16:16] VITALS: BP 117/58; PULSE 63; RESP 18; TEMP 98.3; O2SAT 95
--- NOTE | 2016-12-09 22:50 | HHI.PYPN ---
Subjective Remarks Pt seen and discussed with staff. She remains psychotic but is improving. Less agitated and impulsive but still requires close supervision. No SI/HI. Objective Alert: Yes [place]: Person, Place Mood: Angry, Anxious Affect: Restricted, Blunted Memory Intact: Immediate, Recent, Remote, Comment (Not formally assessed) Hallucinations: Other (None) Delusions: Yes Delusion Type: Paranoid Suicidal: Ideation (no suicidal ideation voiced) Homicidal: Ideation (no homicidal ideation voiced) Insight/Judgement poor Vitals/IOs Vital Signs Date Time Temp Pulse Resp B/P Pulse Ox O2 Delivery O2 Flow Rate FiO2 12/09/16 16:16 98.3 63 18 117/58 95 Assessment & Plan Problem List: (1) Schizoaffective disorder ICD Code: F25.9 Assessment & Plan Continue current tx plan. Estimated LOS: days Justification for Cont. Inpt. risk of decompensation Request HC Surrog/Guard Advoc?: Yes Problem Qualifiers (1) Schizoaffective disorder: Qualified Code: F25.8 - Other schizoaffective disorders Nasrin Fields MD Dec 09, 2016 22:50
[2016-12-10 07:00] VITALS: BP 143/91; PULSE 66; RESP 16; TEMP 97.7; O2SAT 100
--- NOTE | 2016-12-10 12:40 | HHI.PYPN ---
Subjective Remarks Remains psychotic with limited insight and impaired judgment. Does not appear to understand her reasons for being hospitalized. Review of Systems ROS Limitations: Clinical Condition Except as stated in HPI: all other systems reviewed are Neg Objective Alert: Yes [place]: Person, Place Mood: Angry, Anxious Affect: Restricted, Blunted Memory Intact: Immediate, Recent, Remote, Comment (Not formally assessed) Hallucinations: Other (None) Delusions: Yes Delusion Type: Paranoid Suicidal: Ideation (no suicidal ideation voiced) Homicidal: Ideation (no homicidal ideation voiced) Insight/Judgement Continues to demonstrate impaired insight and impaired judgment, indicating she is unable to care for herself. Vitals/IOs Vital Signs Date Time Temp Pulse Resp B/P Pulse Ox O2 Delivery O2 Flow Rate FiO2 12/10/16 07:00 97.7 66 16 143/91 100 Assessment & Plan Problem List: (1) Schizoaffective disorder ICD Code: F25.9 Assessment & Plan Estimated LOS: days we will continue to evaluate for medication efficacy and the need for titration. Justification for Cont. Inpt. Patient remains unable to care for herself. Request HC Surrog/Guard Advoc?: Yes Problem Qualifiers (1) Schizoaffective disorder: Qualified Code: F25.8 - Other schizoaffective disorders Adonay Aguilar MD Dec 10, 2016 12:40
[2016-12-10 15:15] VITALS: BP 97/57; PULSE 73; RESP 18; TEMP 98.2; O2SAT 98
[2016-12-10] MEDS: ACETAMINOPHEN 325 MG TAB PO PRN (22:00)
[2016-12-11 06:18] VITALS: BP 112/58; PULSE 60; RESP 18; TEMP 98.1; O2SAT 98
--- NOTE | 2016-12-11 13:04 | HHI.PYPN ---
Subjective Remarks Patient was seen and discussed with the staff air tactical officer. Patient reported that she has been feeling much better. She denied any active auditory or visual hallucinations. Denied any suicidal ideation intentions or plan. No side effects were complained from the medication. No behavior or management problem reported. Patient would like to go home soon but willing to stay. Continue with the same treatment Review of Systems Except as stated in HPI: all other systems reviewed are Neg Psychiatric: COMPLAINS OF: Mood changes, Depression Objective Alert: Yes [place]: Person, Place, Situation Mood: Anxious, Calm Affect: Restricted, Blunted Memory Intact: Immediate, Recent, Remote, Comment (Not formally assessed) Hallucinations: Other (None) Delusions: Yes Delusion Type: Paranoid Suicidal: Ideation (no suicidal ideation voiced) Homicidal: Ideation (no homicidal ideation voiced) Insight/Judgement Fair Vitals/IOs Vital Signs Date Time Temp Pulse Resp B/P Pulse Ox O2 Delivery O2 Flow Rate FiO2 12/11/16 06:18 98.1 60 18 112/58 98 Assessment & Plan Problem List: (1) Schizoaffective disorder ICD Code: F25.9 Assessment & Plan Estimated LOS: days Justification for Cont. Inpt. Monitoring of the medication and risk of decompensation Request HC Surrog/Guard Advoc?: Yes Problem Qualifiers (1) Schizoaffective disorder: Qualified Code: F25.8 - Other schizoaffective disorders Parish Gates MD Dec 11, 2016 13:04
[2016-12-11 15:29] VITALS: BP 110/62; RESP 18; TEMP 97.9; O2SAT 97
[2016-12-12 06:38] VITALS: BP 130/64; PULSE 68; RESP 17; TEMP 98; O2SAT 100
--- NOTE | 2016-12-12 13:05 | HHI.PYPN ---
Subjective Remarks Patient remained somewhat agitated and would like to leave the hospital. However, this physician has been told her family does not want her. Patient does not have a appropriate disposition as far as I am aware. Review of Systems ROS Limitations: Clinical Condition Except as stated in HPI: all other systems reviewed are Neg Objective Alert: Yes [place]: Person, Place, Situation Mood: Anxious, Calm Affect: Euthymic, Blunted Memory Intact: Immediate, Recent, Remote, Comment (Not formally assessed) Hallucinations: Other (None) Delusions: No Delusion Type: Other Suicidal: Ideation (no suicidal ideation voiced) Homicidal: Ideation (no homicidal ideation voiced) Insight/Judgement Impaired but improved. Vitals/IOs Vital Signs Date Time Temp Pulse Resp B/P Pulse Ox O2 Delivery O2 Flow Rate FiO2 12/12/16 06:38 98.0 68 17 130/64 100 Assessment & Plan Problem List: (1) Schizoaffective disorder ICD Code: F25.9 Assessment & Plan Estimated LOS: days if patient does not have an appropriate place to live, this physician does not feel comfortable discharging her today. Dr. Sarahy andrews may have different opinion tomorrow Justification for Cont. Inpt. Unable to care for self. Request HC Surrog/Guard Advoc?: Yes Problem Qualifiers (1) Schizoaffective disorder: Qualified Code: F25.8 - Other schizoaffective disorders Adonay Aguilar MD Dec 12, 2016 13:05
[2016-12-12 19:24] VITALS: BP 116/66; PULSE 83; RESP 18; TEMP 98.5; O2SAT 100
[2016-12-12] MEDS: ACETAMINOPHEN 325 MG TAB PO PRN (22:20)
[2016-12-13 05:24] VITALS: BP 93/46; PULSE 57; RESP 16; TEMP 98.1; O2SAT 99
--- NOTE | 2016-12-13 11:29 | HHI.PYPN ---
Subjective Remarks Patient seen and examined with nurse. Chart reviewed. Case discussed with nursing staff who reports patient remains on close observation and wonders if this might be liberalize to allow the patient to go off the unit. Nurse also reports that the patient continues to believe that her mother is a witch. On my examination today, the patient remains somewhat watchful and guarded although she is less irritable and dysphoric than my last contact with her. She does remain somewhat rambling and argumentative and minimizes the circumstances of her presentation here insisting that the only reason that she was brought into the hospital was because "I was trying my guinea pig's hay to see how it tastes." She denies any SI, HI or AVH at this time. Her insight into her mental illness is poor, and she says that she will not continue with long-acting injectables after discharge. She insists that she will accept whatever oral medication we recommend, but our own history with this patient during this admission suggests otherwise. Denies side effects from medications. Review of Systems ROS Limitations: Poor Historian Other No physical complaints today Objective Alert: Yes [place]: Person, Place Mood: Other (calmer) Affect: Blunted (less dysphoric) Memory Intact: Comment (at least fair on clinical exam) Hallucinations: Other (no AVH) Delusions: Yes Delusion Type: Paranoid (perhaps somewhat attenuated versus previous encounter) Suicidal: Ideation (denies SI) Homicidal: Ideation (denies HI) Insight/Judgement Poor Remarks No abnormal motor movements noted. Thought process fairly linear. Speech within normal limits for rate, tone and volume. Grooming and hygiene at least fair. Labs Labs reviewed. No new labs. Vitals/IOs Vital Signs Date Time Temp Pulse Resp B/P Pulse Ox O2 Delivery O2 Flow Rate FiO2 12/13/16 05:24 98.1 57 16 93/46 99 Assessment & Plan Problem List: (1) Schizoaffective disorder ICD Code: F25.9 Assessment & Plan Patient definitely seems somewhat improved versus my previous encounter with her before the weekend. She remains guarded and watchful and her insight into her mental illness is poor, however. She continues to display some signs of psychosis, and so I will add low-dose oral Haldol to her Invega Sustenna to manage this symptom cluster. This will also give us an opportunity to assess whether patient will in fact accept oral medications, as she insists that she will do. Continue other medications and care as ordered. Justification for Cont. Inpt. Impairments in reality construction. Risk for decompensation. Discharge Planning I have asked the counselor to reach out the patient's mother for her assessment and also to see about the feasibility of the patient returning home with mother once stabilized. Request HC Surrog/Guard Advoc?: Yes Problem Qualifiers (1) Schizoaffective disorder: Qualified Code: F25.8 - Other schizoaffective disorders Festus Meade MD Dec 13, 2016 11:29
[2016-12-13 18:17] VITALS: BP 105/64; PULSE 66; RESP 17; TEMP 91; O2SAT 97
[2016-12-13] MEDS: HALOPERIDOL 2 MG TAB PO SCH (21:00)
[2016-12-14 05:45] VITALS: BP 118/59; PULSE 66; RESP 18; TEMP 97.6; O2SAT 99
[2016-12-14 06:13] VITALS: BP 118/59; PULSE 66; RESP 18; TEMP 97.9; O2SAT 99
[2016-12-14] MEDS: HALOPERIDOL 2 MG TAB PO SCH ×3 (09:00→21:25)
--- NOTE | 2016-12-14 11:23 | HHI.PYPN ---
Subjective Remarks Patient seen and examined with counselor. Chart reviewed. Case discussed with counselor, occupational therapist and nurse in treatment team. Per nursing staff, patient refused Haldol by mouth, as I had feared. Counselor has tried to get in contact with patient's mother to determine if the patient may return to live there but has so far had no success in reaching her. Occupational therapist reports that the patient has been attending groups but her socialization is poor and she cannot tolerate them very well. On my examination today, the patient insists that her father is ill in [facility] and she must be discharged so that she can go up to stay with him. She is hypervigilant and guarded still. She says that she refused the Haldol by mouth because she doesn't think that she needs to take any medications whatsoever, regardless of the route. No reported side effects from medications however. Review of Systems ROS Limitations: Poor Historian Other No physical complaints today Objective Alert: Yes [place]: Person, Place Mood: Calm Affect: Blunted (remains a little dysphoric) Memory Intact: Comment (Fair) Hallucinations: Other (None) Delusions: Yes Delusion Type: Paranoid Suicidal: Ideation (No SI) Homicidal: Ideation (No HI) Insight/Judgement Poor Remarks TP perseverative on not being on medications and on discharge. No abnormal motor movements noted. Speech a little strident but otherwise wnl. Labs Labs reviewed. No new labs. Vitals/IOs Vital Signs Date Time Temp Pulse Resp B/P Pulse Ox O2 Delivery O2 Flow Rate FiO2 12/14/16 06:13 97.9 66 18 118/59 99 Assessment & Plan Problem List: (1) Schizoaffective disorder ICD Code: F25.9 Assessment & Plan Patient with ongoing psychotic symptoms on Invega Sustenna. She refused oral Haldol, and her insight into need for medications generally is poor. When Sustenna is next due, we could consider increasing the dose to 234mg [id number], but for the time being, I will add IM backup to the Haldol to promote adherence in hopes of bringing her symptoms under better control. Continue other medications and care as ordered. Justification for Cont. Inpt. High risk for decompensation in a less restrictive environment. Discharge Planning Pending psychiatric stabilization. Anticipate home with mother with outpatient psychiatric follow-up. Request HC Surrog/Guard Advoc?: Yes Problem Qualifiers (1) Schizoaffective disorder: Qualified Code: F25.8 - Other schizoaffective disorders Festus Meade MD Dec 14, 2016 11:23
[2016-12-14 17:54] VITALS: BP 104/62; PULSE 62; RESP 18; TEMP 98; O2SAT 98
[2016-12-14] MEDS ORDERED: HALOPERIDOL LACTATE 5 MG/ML AMP IM PRN (21:00)
[2016-12-15 06:35] VITALS: BP 90/53; PULSE 64; RESP 16; TEMP 97.9; O2SAT 98
[2016-12-15] MEDS: HALOPERIDOL 2 MG TAB PO SCH ×2 (09:28→21:10)
--- NOTE | 2016-12-15 16:41 | HHI.PYPN ---
Subjective Remarks Patient was seen and case discussed with nursing. Patient is irritable and describes her mood as "angry." She is perseverant on having to take Haldol. Continues to deny psychotic symptoms. No outbursts today. Poor insight into admission. Per nursing could be cheeking her Haldol and was reminded she has IM backup Objective Alert: Yes [place]: Person, Place Mood: Oppositional Affect: Flat Memory Intact: Comment (Fair) Hallucinations: Other (None) Delusions: Yes Delusion Type: Paranoid Suicidal: Ideation (No SI) Homicidal: Ideation (No HI) Insight/Judgement Poor Vitals/IOs Vital Signs Date Time Temp Pulse Resp B/P Pulse Ox O2 Delivery O2 Flow Rate FiO2 12/15/16 06:35 97.9 64 16 90/53 98 Assessment & Plan Problem List: (1) Schizoaffective disorder ICD Code: F25.9 Assessment & Plan Continue current treatment plan Justification for Cont. Inpt. Patient will decompensate in a less restrictive setting Request HC Surrog/Guard Advoc?: Yes Problem Qualifiers (1) Schizoaffective disorder: Qualified Code: F25.8 - Other schizoaffective disorders Von Dia DO Dec 15, 2016 16:41
[2016-12-15 22:24] VITALS: BP 118/67; PULSE 65; RESP 18; TEMP 98.2
[2016-12-16 05:31] VITALS: BP 117/58; PULSE 63; RESP 18; TEMP 97.8; O2SAT 95
[2016-12-16] MEDS: HALOPERIDOL 2 MG TAB PO SCH ×2 (08:27→21:19)
--- NOTE | 2016-12-16 16:43 | HHI.PYPN ---
Subjective Remarks Patient was seen and case discussed with nursing. Patient is less argumentative about her medications today. She is compliant. Continues to deny psychotic symptoms. No delusions were elicited and nursing could not provide any details concerning psychosis. Denies auditory visual hallucinations. She is behaving well on the unit, social with others. Describes her mood today is "tired." Objective Alert: Yes [place]: Person, Place, Date Mood: Calm Affect: Blunted Memory Intact: Comment (Fair) Hallucinations: Other (None) Delusions: Yes Delusion Type: Paranoid Suicidal: Ideation (No SI) Homicidal: Ideation (No HI) Insight/Judgement Poor Vitals/IOs Vital Signs Date Time Temp Pulse Resp B/P Pulse Ox O2 Delivery O2 Flow Rate FiO2 12/16/16 05:31 97.8 63 18 117/58 95 Assessment & Plan Problem List: (1) Schizoaffective disorder ICD Code: F25.9 Assessment & Plan Continue current treatment plan Justification for Cont. Inpt. Patient will decompensate in a less restrictive setting Request HC Surrog/Guard Advoc?: Yes Problem Qualifiers (1) Schizoaffective disorder: Qualified Code: F25.8 - Other schizoaffective disorders Von Dia DO Dec 16, 2016 16:43
[2016-12-16 19:02] VITALS: BP 95/47; PULSE 50; RESP 18; TEMP 98.3
[2016-12-17 06:32] VITALS: BP 120/64; PULSE 91; RESP 18; TEMP 97.6; O2SAT 96
[2016-12-17] MEDS: HALOPERIDOL 2 MG TAB PO SCH ×2 (08:54→20:12)
[2016-12-17] MEDS ORDERED: HALOPERIDOL LACTATE 5 MG/ML AMP IM PRN (11:45)
--- NOTE | 2016-12-17 11:47 | HHI.PYPN ---
Subjective Remarks Patient seen and examined with counselor and nurse. Chart reviewed. Case discussed with nursing staff who reports patient is somewhat less bizarre and is able to tolerate her telephone conversations without becoming explosively upset somewhat better. On my examination today, patient expresses her displeasure at the addition of Haldol, although she is accepting this by mouth reluctantly. Her insight into her mental illness is poor, and she bristles at the notion that she should have to be on any medication at all. She is fairly paranoid and turns her own need for medication into a plot to repress women. She denies SI/HI/AVH. Complains of what sound like sinus symptoms (frontal headache, rhinorrhea) and tries to link these to the Haldol, but I suspect this is a manifestation of her resistance to medications generally. Review of Systems ROS Limitations: Psychotic, Poor Historian Other Except as above, no physical complaints Objective Alert: Yes [place]: Person, Place, Date Mood: Anxious Affect: Blunted Memory Intact: Comment (Fair) Hallucinations: Other (no AVH) Delusions: Yes Delusion Type: Paranoid Suicidal: Ideation (No SI) Homicidal: Ideation (no HI) Insight/Judgement Poor Remarks Thought process linear. Speech within normal limits for rate. No abnormal motor movements noted. Grooming and hygiene fair. Labs Labs reviewed. No new labs. Vitals/IOs Vital Signs Date Time Temp Pulse Resp B/P Pulse Ox O2 Delivery O2 Flow Rate FiO2 12/17/16 06:32 97.6 91 18 120/64 96 Assessment & Plan Problem List: (1) Schizoaffective disorder ICD Code: F25.9 Assessment & Plan Patient does seem to have accrued some benefit from the addition of Haldol, and I will titrate this agent at this time. As I noted before, we could consider titrating Invega Sustenna when it is next due and tapering or discontinuing the Haldol at that time. Main barrier to discharge at this point is lack of safe discharge location as patient's mother does not yet feel comfortable having the patient home per counselor's notes. Continue other medications and care as ordered. Justification for Cont. Inpt. Impairment in social function. Risk for decompensation without adequate supports in the community, presently lacking as noted above. Discharge Planning Pending psychiatric stabilization. Request HC Surrog/Guard Advoc?: Yes Problem Qualifiers (1) Schizoaffective disorder: Qualified Code: F25.8 - Other schizoaffective disorders Festus Meade MD Dec 17, 2016 11:47
[2016-12-17 18:05] VITALS: BP 115/59; PULSE 71; RESP 17; TEMP 98; O2SAT 98
[2016-12-18 05:41] VITALS: BP 91/47; PULSE 69; RESP 16; TEMP 98.3; O2SAT 97
[2016-12-18] MEDS: HALOPERIDOL 2 MG TAB PO SCH ×2 (09:00→21:11)
--- NOTE | 2016-12-18 11:44 | HHI.PYPN ---
Subjective Remarks Patient seen and examined with nurse. Chart reviewed. Case discussed with nurse, counselor and occupational therapist in treatment team. Per nursing staff, patient refused her oral Haldol this morning and had to receive it IM. Counselor notes that the patient's mother is willing to accept the patient back but does not yet feel that she is adequately stabilized for safety discharge home. Occupational therapist reports that the patient does come to some groups but uses this as an opportunity to display some degree of oppositional defiance. On my examination today, the patient complains of feeling tired. She attributes this to medications and expresses herself cream displeasure and being forced to take any sort of medications. Her insight remains quite poor and she insists that she does not need to and will not continue to take medications after she is discharged. She denies audiovisual hallucinations. Denies suicidal or homicidal ideation. No other side effects from medications reported. When I endeavor to explain to her the issues with her mother's concerns and the need for further stabilization, the patient becomes extremely upset and rages for a while and finally asks for a different psychiatrist. Review of Systems ROS Limitations: Poor Historian Other No somatic complaints reported Objective Alert: Yes [place]: Person, Place Mood: Angry, Anxious, Oppositional Affect: Restricted (dysphoric) Memory Intact: Comment (Fair) Hallucinations: Other (no AVH) Delusions: Yes Delusion Type: Paranoid (some ongoing paranoia) Suicidal: Ideation (no suicidal ideation) Homicidal: Ideation (no homicidal ideation) Insight/Judgement Poor Remarks Thought process perseverative on discharge and not taking medications. Speech somewhat loud and angry. Grooming and hygiene fair. No abnormal motor movements noted. No objective signs of side effects from medications such as tremor, dystonia, dyskinesia. Labs Laboratories reviewed. No new labs. Vitals/IOs Vital Signs Date Time Temp Pulse Resp B/P Pulse Ox O2 Delivery O2 Flow Rate FiO2 12/18/16 05:41 98.3 69 16 91/47 97 Assessment & Plan Problem List: (1) Schizoaffective disorder ICD Code: F25.9 Assessment & Plan Continue oral Haldol with IM backup as ordered. I am pessimistic that the patient will accept any medications on discharge, but we have no legal framework options, e.g. outpatient commitment, to insist upon this. I think that the best course of action would be to ensure that the patient's psychotropic medications consist entirely long-acting injectables since the opportunity for nonadherence would be minimized. At the end of this week and will have been 2 weeks since her last Invega Sustenna injection. I therefore propose to give her a small booster dose of Invega Sustenna at that time which will hopefully allow us to discontinue her oral Haldol. She can then go on to get the Invega Sustenna 234 mg IM when it would otherwise next be due. Continue to monitor on the inpatient unit. Continue other medications and care as ordered. Justification for Cont. Inpt. Impairments and social function. Impairments in reality construction. High risk for decompensation in a less restrictive environment. Discharge Planning I think we'll need to hold the patient at least through the weekend to administer the booster dose of Invega Sustenna, ensure she is tolerating this, and ensure there is no psychiatric decompensation off of oral Haldol. Request HC Surrog/Guard Advoc?: Yes Problem Qualifiers (1) Schizoaffective disorder: Qualified Code: F25.8 - Other schizoaffective disorders Festus Meade MD Dec 18, 2016 11:44
[2016-12-18 17:30] VITALS: BP 115/54; PULSE 79; RESP 16; TEMP 98.1; O2SAT 98
[2016-12-19 06:27] VITALS: BP 105/57; PULSE 92; RESP 18; TEMP 98.2; O2SAT 98
[2016-12-19] MEDS: HALOPERIDOL 2 MG TAB PO SCH ×2 (09:17→20:43)
--- NOTE | 2016-12-19 12:19 | HHI.PYPN ---
Subjective Remarks Patient seen and examined with nurse. Chart reviewed. Case discussed with nursing staff who reports patient is now accepting oral Haldol. Nursing staff does note that the patient is somewhat sedated and may be neglecting her hygiene to some degree as a result. On my examination today, the patient does indeed complain of feeling subjectively sleepy from the Haldol. She doesn't seem terribly objectively sedated. I do note that she is significantly calmer and less irritable. She is more logical and reasonable in our conversation. We discuss providing additional Invega Sustenna in service of discontinuing oral Haldol completely, and she is in agreement with this. Review of Systems ROS Limitations: Poor Historian Other Feels like she has a "stye" on the medial aspect of her right eye. No other physical complaints. Objective Alert: Yes [place]: Person, Place (at least) Mood: Calm (much calmer and less oppositional) Affect: Blunted Memory Intact: Comment (Fair) Hallucinations: Other (none) Delusions: No Delusion Type: Other (paranoia significantly decreased) Suicidal: Ideation (denies SI) Homicidal: Ideation (denies HI) Insight/Judgement Poor Remarks Thought process fairly linear today. No motoric abnormalities noted. Grooming and hygiene actually seemed fairly good. I cannot appreciate any lesion along the eyelid. Labs Labs reviewed. No new labs. Vitals/IOs Vital Signs Date Time Temp Pulse Resp B/P Pulse Ox O2 Delivery O2 Flow Rate FiO2 12/19/16 06:27 98.2 92 18 105/57 98 Assessment & Plan Problem List: (1) Schizoaffective disorder ICD Code: F25.9 Assessment & Plan Taper Haldol somewhat to address patient's subjective complaints of over sedation and nursing report of same, although patient does seem much improved. So long as these gains are maintained on a lower dose of Haldol, I would propose to administer additional Sustenna as planned and discontinue the Haldol entirely. I think we could likely provide the Sustenna tomorrow, observe night, and hopefully transition back to outpatient level of care before the weekend. Justification for Cont. Inpt. Risk for decompensation in a less restrictive environment pending psychiatric stabilization. Discharge Planning Possible discharge before the weekend if the above plan can be successfully instituted. Alternatively, we might hold the patient briefly through the weekend and anticipate discharge beginning of next week barring some clinical deterioration. Request HC Surrog/Guard Advoc?: Yes Problem Qualifiers (1) Schizoaffective disorder: Qualified Code: F25.8 - Other schizoaffective disorders Festus Meade MD Dec 19, 2016 12:19
[2016-12-19] MEDS ORDERED: HALOPERIDOL LACTATE 5 MG/ML AMP IM PRN (12:30)
[2016-12-19 18:56] VITALS: BP 98/51; PULSE 59; RESP 18; TEMP 98.1; O2SAT 97
[2016-12-19] MEDS ORDERED: PILL SPLITTER OTHER PRN (21:00)
[2016-12-20 05:24] VITALS: BP 98/68; PULSE 73; RESP 17; TEMP 97.6; O2SAT 94
[2016-12-20] MEDS: HALOPERIDOL 2 MG TAB PO SCH (08:23)
--- NOTE | 2016-12-20 11:30 | HHI.PYPN ---
Subjective Remarks Patient seen and examined with nurse. Chart reviewed. Case discussed with nursing staff who reports patient is in better behavioral control and medication compliant. On my examination today, the patient is calm and pleasant. Her paranoia is significantly lessened. She asks appropriate questions regarding the expense of her hospital stay, and I have asked the nursing staff to link the patient with the financial counselor in this regard. She is hopeful for discharge soon and denies any side effects from medications besides tiredness. Review of Systems Other Continues to complain of having a stye in her right eye. No other physical complaints. Objective Alert: Yes [place]: Person, Place, Date Mood: Calm Affect: Blunted Memory Intact: Comment (at least fair) Hallucinations: Other (no AVH) Delusions: No Delusion Type: Other (no delusions) Suicidal: Ideation (no suicidal ideation) Homicidal: Ideation (no homicidal ideation) Insight/Judgement Improving Remarks No abnormal motor movements noted. Thought process linear. Labs Labs reviewed. No new labs. Vitals/IOs Vital Signs Date Time Temp Pulse Resp B/P Pulse Ox O2 Delivery O2 Flow Rate FiO2 12/20/16 05:24 97.6 73 17 98/68 94 I have asked the nursing staff to recheck patient's vital signs. Assessment & Plan Problem List: (1) Schizoaffective disorder ICD Code: F25.9 Assessment & Plan As planned, administer small booster dose of Invega Sustenna, 39 mg IM today. I will discontinue patient's Haldol. Plan would be to administer 234 mg of Invega Sustenna IM when she is next due for this. Continue to monitor on the inpatient unit overnight. Continue other medications and care as ordered. Justification for Cont. Inpt. Final discharge planning. Discharge Planning Anticipate discharge tomorrow barring some clinical worsening. Counselor to reach out the patient's mother. Request HC Surrog/Guard Advoc?: Yes Problem Qualifiers (1) Schizoaffective disorder: Qualified Code: F25.8 - Other schizoaffective disorders Festus Meade MD Dec 20, 2016 11:30
[2016-12-20] MEDS ORDERED: PALIPERIDONE PALMITATE 117 MG/0.75 ML SYR IM ONE (12:00)
[2016-12-20 12:45] VITALS: BP 112/71; PULSE 72; RESP 16; TEMP 97.5; O2SAT 98
[2016-12-20] MEDS: MULTIVITAMIN TAB PO SCH (13:00)
[2016-12-20 15:15] VITALS: BP 103/61; PULSE 72; RESP 18; TEMP 98.5; O2SAT 98
[2016-12-21 05:35] VITALS: BP 110/55; PULSE 58; RESP 18; TEMP 97.9; O2SAT 96
[2016-12-21] MEDS: MULTIVITAMIN TAB PO SCH (08:21)
[2016-12-21] MEDS ORDERED: PALI234P IM (10:02)
--- NOTE | 2016-12-21 10:02 | HHI.DS ---
Psychiatry Discharge Summary Inpatient Psychiatric care?: Yes Advance Directive: No Reason Not Provided: Due to Patient Condition Mental Health AdvanceDirective: No Health Care Proxy: No Admission Admission Date Nov 30, 2016 at 22:06 Admission Diagnosis: (1) Schizoaffective disorder ICD Code: F25.9 Brief History The patient is a 46-year-old woman, domicile with her mother, unemployed, with psychiatric history of schizoaffective disorder, numerous hospitalizations, previous suicidal attempts, she reports not to be taking any medication at this moment, who that presented to the ED for evaluation of psychiatric illness in the context of noncompliance with medication. according to ER note "Patient apparently has been noncompliant with her medications and has been acting bizarre. Per expert that patient was apparently making nonsensical statements and night about her kids who were girls been boys and cursing and making nonsense. On psychiatric evaluation today patient is found in her bed, very upset, irritable, demanding to be discharged, refusing to talk "I am not going to talk unless he was discharge me". Patient states that the reason she is here is because her mother is a liar. She denies depression, she denies anxiety, she denies perceptual disturbances, she denies suicidal or homicidal ideation. She denies visual and auditory hallucinations. Nurse in charge stated the patient has been disruptive, very irritable, inappropriate and so far refusing to give any information. Tobacco Use In Past 30 Days: No Tobacco Past 30 Days Alcohol Use: Never Hospital Course Patient was admitted to a locked, inpatient psychiatric unit. Appropriate precautions were in place throughout patient's hospital stay. Patient was seen and examined daily on the unit by psychiatry and also visited by counselor. Medications were adjusted. Patient was started on long-acting injectable Invega Sustenna. Patient did receive booster dose of Invega Sustenna and also received a small additional dose towards the end of her hospital stay. My recommendation on discharge is to administer the 234 mg dose when she is next due for this medication. Patient had improvement in her presenting psychiatric symptomatology during the course of her hospital stay. Behavior improved with the benefit of psychopharmacologic treatment. There was no evidence of any suicidality or homicidality on the inpatient unit. Patient's insight into both her mental illness and the need for medications remained unfortunately fairly poor. On the day of discharge: Patient seen and examined with counselor. Chart reviewed. Case discussed with nursing staff who reports patient has been no behavioral problem. On my examination today, the patient is calm and pleasant. She denies any SI, HI or AVH. I can elicit no delusional beliefs. She continues to say "I don't understand [why she needs to take medication]. There was nothing wrong with me." Despite this, she is more accepting of the idea of taking medications at this point. She denies significant side effects from medications. No physical complaints besides a resolving stye in her eye. Weighing the acute, chronic, and protective factors and based on the available evidence, I machine feeder floorperson to a reasonable degree of medical certainty that the patient is at low imminent risk of harm to self or others from a mental illness and her level of function is adequate for outpatient care. Patient is requesting discharge from the inpatient psychiatric unit today, and inasmuch as she no longer meets criteria for involuntary psychiatric hospitalization, I will discharge her with psychiatric follow-up as arranged by counselor. Patient is also to follow-up with primary care. I have counseled the patient to return to the psychiatric emergency room for any concerning psychiatric symptoms as part of the general safety plan. Results Blood Pressure 110 / 55 Vital Signs Date Time Temp Pulse Resp B/P Pulse Ox O2 Delivery O2 Flow Rate FiO2 12/21/16 05:35 97.9 58 18 110/55 96 Item Value Date Time White Blood Count 5.8 TH/MM3 11/30/16 1415 Hemoglobin 15.4 GM/DL H 11/30/16 1415 Platelet Count 249 TH/MM3 11/30/16 1415 Sodium Level 139 MEQ/L 12/01/16 0644 Potassium Level 3.9 MEQ/L 12/01/16 0644 Chloride Level 103 MEQ/L 12/01/16 0644 Carbon Dioxide Level 26.1 MEQ/L 12/01/16 0644 Blood Urea Nitrogen 9 MG/DL 12/01/16 0644 Creatinine 0.69 MG/DL 12/01/16 0644 Random Glucose 93 MG/DL 12/01/16 0644 Hemoglobin A1c 5.7 % 12/01/16 0644 Aspartate Amino Transf (AST/SGOT) 98 U/L H 11/30/16 1415 Alanine Aminotransferase (ALT/SGPT) 146 U/L H 11/30/16 1415 Alkaline Phosphatase 68 U/L 11/30/16 1415 Beta HCG, Qualitative LESS THAN 1 MIU/ML 12/03/16 1504 Summary of Procedures None done Imaging None done Pending results at discharge: No Medications # of Antipsychotic meds at D/C: 1 Approp Antipsych med options 1 - Minimum of three failed multiple trials of monotherapy. 2 - Documented plan to taper to monotherapy due to previous use of multiple meds OR cross-taper in progress at D/C. 3 - Documentation of augmentation of Clozapine. 4 - Justification other than those listed in allowable values 1-3, document here : Discharge Discharge Date: Dec 21, 2016 Discharge Diagnosis: (1) Other schizoaffective disorders Diagnosis: Principal (stabilized) ICD Code: F25.8 GAF on discharge is 55. Mental Status Exam at Disch Patient is in hospital gown. She is well groomed. She is maintaining basic hygiene. She is awake and alert and oriented to person and hospital at least. No evidence of delirium. No abnormal motor movements noted. Speech is within normal limits for rate, tone and volume. Language and fund of knowledge seemed average. Mood is fair and affect is full and reactive. Thought process linear. No loosening of associations. No evident delusions. Denies audiovisual hallucinations. Denies suicidal or homicidal ideation. Insight and judgment are poor. Pt Condition on Discharge: Stable Discharge Disposition: Discharge Home Discharge Instructions Diet Instructions: As Tolerated, No Restrictions Activities you can perform: Weight Bearing as Eyal Scheduled Appointment: Edu Dodge Appointment Date: Dec 26, 2016 Appointment Time: 7:30am New Medications: Paliperidone Palmitate Inj (Invega Sustenna Inj) 234 Mg/1.5 Ml Inj 234 MG IM Q28D This dose of Invega Sustenna is due on 01/04/2017. Mental Health # 1 Ref 0 VIAL Continued Medications: Multiple Vitamin (Multiple Vitamin) 1 Tab 1 TAB PO DIRECTED Nutritional Supplement Ref 0 TAB Discontinued Medications: Sulfamethoxazole-Trimethoprim (Bactrim DS) 800-160 Mg Tab 1 TAB PO BID Infection Days 7 TAB Discharge Time <= 30 minutes Discharge/Advance Care Plan Health Problems: (1) Schizoaffective disorder Goals to promote your health * To prevent worsening of your condition and complications * To maintain your health at the optimal level Directions to meet your goals Take your medications as prescribed Follow your dietary instruction Follow activity as directed Keep your appointments as scheduled Take your immunizations and boosters as scheduled If your symptoms worsen call your PCP, if no PCP go to Urgent Care Center or Emergency Room For 29/04 questions related to your inpatient stay or results of tests pending at discharge, please contact Dr. Festus Meade at Smoking is Dangerous to Your Health. Avoid second hand smoking Problem Qualifiers (1) Schizoaffective disorder: Qualified Code: F25.0 - Schizoaffective disorder, bipolar type Festus Meade MD Dec 21, 2016 10:02
[2016-12-22] MEDS ORDERED: HYDROCORTISONE 1% CREAM 30 GM TOPICAL SCH (09:00)
== END 2016-12-21 15:00 | disposition home or self-care (01) | DRG 885 ==
LOC: NEDAMB 13:29 → NEDA 22:06 → H270 23:10
PROVIDERS: ADMIT Psychiatry & Neurology Psychiatry; ATTEND Psychiatry & Neurology Psychiatry
DX: F25.0 Schizoaffective disorder, bipolar type (principal); Z91.14 Patient's other noncompliance with medication regimen; F41.9 Anxiety disorder, unspecified
CPT/HCPCS: 80048; 80053; 80061; 80307; 80320; 81001; 83036; 84703; 85025; 87086; 99284; J1630; J2426